=== PATIENT | female | born 1945 | race Caucasian/White ===

== ENCOUNTER 2019-06-08 | Emergency (ER) | payer MEDICARE ==
[2019-06-08] MEDS ORDERED: ASPIRIN81 MG PO (10:33)
[2019-06-08] MEDS ORDERED: METOPROL TAR25 MG PO (10:33)
[2019-06-08] MEDS ORDERED: ROSUVASTATIN CA40 MG (10:33)
[2019-06-08] MEDS ORDERED: PHENERGAN25 MG/TAB PO (10:34)
[2019-06-08] MEDS ORDERED: FIORICET PO (10:35)
[2019-06-08] MEDS ORDERED: FUROSEMIDE20 MG PO (10:36)
[2019-06-08] MEDS ORDERED: RELPAX20 MG PO (10:37)
[2019-06-08] MEDS ORDERED: NITROGLYCERIN0.4 MG (10:37)
[2019-06-08 10:54] LABS: HEMATOCRIT 31.7 % (37.0-47.0); HEMOGLOBIN 9.7 g/dl (12.0-16.0); IMMATURE GRANULOCYTES 0.7 % (0.0-5.0); MEAN CELL VOLUME 97.8 fL CALC (80.0-100.0); MEAN CORPUSCULAR HGB 29.9 pG CALC (26.0-32.0); MEAN CORPUSCULAR HGB CONC 30.6 g/dL CAL (32.0-36.0); NEUT# 5.3 thou/uL (2.00-7.15); RED BLOOD COUNT 3.24 mill/uL (4.20-5.60); RED CELL DISTRI WIDTH 14.3 % (11.5-15.5)
[2019-06-08 11:11] LABS: CREATININE 1.4 mg/dL (0.5-1.0); POTASSIUM 3.5 mmol/l (3.5-5.1)
== END 2019-06-08 12:10 | disposition home or self-care (01) ==
PROVIDERS: Family Medicine
DX: S80.12XA Contusion of left lower leg, initial encounter (principal); D64.9 Anemia, unspecified; I12.9 Hypertensive chronic kidney disease with stage 1 through stage 4 chronic kidney disease, or unspecified chronic kidney disease; N18.9 Chronic kidney disease, unspecified; Z95.1 Presence of aortocoronary bypass graft; X58.XXXA Exposure to other specified factors, initial encounter; M79.652 Pain in left thigh